=== PATIENT | female | born 1980 | race Caucasian/White ===

== ENCOUNTER 2019-12-26 10:55 | Emergency (ER) | payer OTHER ==
[~2019-12-26] VITALS: Ht 167.6 cm; Wt 62.6 kg
[~2019-12-26 10:55] MED LIST: AZULFIDINE ENT500 MG PO; CIPROFLOXACIN500 MG PO; FLAGYL500 MG PO; FOLIC ACID1 MG PO; NKHM; OMEPRAZOLE20 MG PO; PERCOGESIC EXTR1 TAB PO; TORADOL10 MG PO; ZOFRAN ODT8 MG PO
[2019-12-26 11:00] VITALS: BP 143/87
== END 2019-12-26 12:03 | disposition home or self-care (01) ==
LOC: ED 10:55
DX: S61.411A Laceration without foreign body of right hand, initial encounter (principal); Z79.899 Other long term (current) drug therapy; W45.8XXA Other foreign body or object entering through skin, initial encounter; Y93.89 Activity, other specified; Y92.89 Other specified places as the place of occurrence of the external cause; Y99.8 Other external cause status

== ENCOUNTER 2020-06-04 19:00 | Emergency (ER) | payer OTHER ==
[~2020-06-04] VITALS: Ht 167.6 cm; Wt 59.0 kg
[2020-06-04 20:04] VITALS: BP 145/74
== END 2020-06-04 21:30 | disposition home or self-care (01) ==
LOC: ED 19:00
DX: M54.12 Radiculopathy, cervical region (principal); M62.838 Other muscle spasm; Z79.899 Other long term (current) drug therapy; Z90.49 Acquired absence of other specified parts of digestive tract